=== PATIENT | male | born 1995 | race Caucasian/White ===

== ENCOUNTER 2020-08-26 11:52 | Outpatient (REF) | payer OTHER, SELFPAY ==
[2020-08-26 12:12] LABS: COVID-19 Test Negative (Negative)
== END 2020-08-26 11:53 | disposition home or self-care (01) ==
LOC: HO.EMPCOV 11:52
PROVIDERS: Visit Provider Internal Medicine
DX: Z20.828 Contact with and (suspected) exposure to other viral communicable diseases (principal)
CPT/HCPCS: 87635; C9803

== ENCOUNTER 2020-11-19 07:25 | Outpatient (REF) | payer OTHER, SELFPAY ==
[2020-11-19 09:06] LABS: HIV AB/AG Nonreactive (Nonreactive); HIV Num 1 0.07 S/CO (0.00-0.99); ~HepC Num1 0.09 S/CO (0.00-0.79); ~Hepatitis C Antibody Nonreactive (Nonreactive)
[2020-11-19 09:16] LABS: HBsAGNum1 0.22 S/CO (0.00-0.99); Hepatitis B Surface Antigen Negative (Negative)
[2020-11-19 09:35] LABS: Syphilis Screen Nonreactive (Nonreactive)
[2020-11-20 16:12] LABS: C. trachomatis RNA TMA NOT DETECTED (NOT DETECTED); N. gonorrhoeae RNA TMA NOT DETECTED (NOT DETECTED)
== END 2020-11-19 07:26 | disposition home or self-care (01) ==
LOC: HO.LAB 07:25
PROVIDERS: PCP Family Medicine; Visit Provider Family Medicine
DX: Z11.4 Encounter for screening for human immunodeficiency virus [HIV] (principal); Z11.3 Encounter for screening for infections with a predominantly sexual mode of transmission; Z01.84 Encounter for antibody response examination; Z20.2 Contact with and (suspected) exposure to infections with a predominantly sexual mode of transmission
CPT/HCPCS: 36415; 86780; 86803; 87340; 87389; 87491; 87591

== ENCOUNTER 2021-05-07 07:03 | Outpatient (REF) | payer OTHER, SELFPAY ==
[2021-05-07 08:21] LABS: HBsAGNum1 0.18 S/CO (0.00-0.99); HIV AB/AG Nonreactive (Nonreactive); HIV Num 1 0.05 S/CO (0.00-0.99); Hepatitis B Surface Antigen Negative (Negative); ~HepC Num1 0.13 S/CO (0.00-0.79); ~Hepatitis C Antibody Nonreactive (Nonreactive)
[2021-05-07 11:30] LABS: CT PCR NOT DETECTED (Not Detect.); NG PCR NOT DETECTED (Not Detect.)
[2021-05-09 08:27] LABS: Syphilis Screen Nonreactive (Nonreactive)
== END 2021-05-07 07:04 | disposition home or self-care (01) ==
LOC: HO.LAB 07:03
PROVIDERS: PCP Family Medicine; Visit Provider Family Medicine
DX: Z20.2 Contact with and (suspected) exposure to infections with a predominantly sexual mode of transmission (principal)
CPT/HCPCS: 86780; 86803; 87340; 87389; 87491; 87591

== ENCOUNTER 2021-06-08 07:07 | Outpatient (REF) | payer OTHER, SELFPAY ==
[2021-06-08 09:07] LABS: Anion Gap 12 (12-20); Blood Urea Nitrogen 10 mg/dL (9-16); Calcium 9.7 mg/dL (8.4-10.2); Carbon Dioxide 27 mmol/L (22-29); Chloride 105 mmol/L (96-108); Cholesterol 153 mg/dL; Estimated Glomerular Filt Rate > 60; Glucose Fasting 77 mg/dL (60-99); HDL Cholesterol 44 mg/dL; LDL Cholesterol Calculated 92 mg/dl; Potassium 4.2 mmol/L (3.3-5.1); Sodium 140 mmol/L (135-145); Triglycerides 88 mg/dL
[2021-06-15 14:31] LABS: TS Negative Control Passed; TS Panel A 1; TS Panel B 0; TS Positive Control Passed; TSpotTB Negative (SeeBelow)
== END 2021-06-08 07:08 | disposition home or self-care (01) ==
LOC: HO.LAB 07:07
PROVIDERS: PCP Family Medicine; Visit Provider Family Medicine
DX: R73.01 Impaired fasting glucose (principal); Z11.1 Encounter for screening for respiratory tuberculosis
CPT/HCPCS: 36415; 80048; 80061; 86481

== ENCOUNTER 2021-06-24 02:02 | Outpatient (REF) | payer OTHER, SELFPAY ==
[2021-06-24 02:30] LABS: COVID-19 Test Negative (Negative)
== END 2021-06-24 02:03 | disposition home or self-care (01) ==
LOC: HO.LAB 02:02
PROVIDERS: Visit Provider Internal Medicine
DX: Z20.822 Contact with and (suspected) exposure to COVID-19 (principal)
CPT/HCPCS: 36415; 87635

== ENCOUNTER 2021-09-15 01:52 | Outpatient (REF) | payer OTHER, SELFPAY ==
[2021-09-15 02:31] LABS: COVID-19 Test Negative (Negative)
== END 2021-09-15 01:53 | disposition home or self-care (01) ==
LOC: HO.LAB 01:52
PROVIDERS: PCP Family Medicine; Visit Provider Internal Medicine
DX: R09.89 Other specified symptoms and signs involving the circulatory and respiratory systems (principal); Z20.822 Contact with and (suspected) exposure to COVID-19
CPT/HCPCS: 36415; 87635

== ENCOUNTER 2021-09-23 07:30 | Outpatient (REF) | payer OTHER, SELFPAY ==
--- NOTE | ~2021-09-23 | XR_ITS ---
EXAMINATION: XR KNEE STANDING, BILATERAL XR KNEE, LEFT CLINICAL INFORMATION: Pain in left knee. COMPARISON: None TECHNIQUE: AP view of the bilateral knees standing. 2 views of the left knee. FINDINGS: No fracture or dislocation. Alignment is normal. Cartilage spaces in the knee are preserved. No joint effusion. Soft tissues are unremarkable. XR/XR knee standing BI IMPRESSION: Unremarkable left knee.
--- NOTE | ~2021-09-23 | XR_ITS ---
EXAMINATION: XR KNEE STANDING, BILATERAL XR KNEE, LEFT CLINICAL INFORMATION: Pain in left knee. COMPARISON: None TECHNIQUE: AP view of the bilateral knees standing. 2 views of the left knee. FINDINGS: No fracture or dislocation. Alignment is normal. Cartilage spaces in the knee are preserved. No joint effusion. Soft tissues are unremarkable. XR/XR knee LT 2V IMPRESSION: Unremarkable left knee.
== END 2021-09-23 07:31 | disposition home or self-care (01) ==
LOC: HO.HOSX 07:30
PROVIDERS: Visit Provider Physician Assistant
DX: M25.562 Pain in left knee (principal); M22.41 Chondromalacia patellae, right knee
CPT/HCPCS: 73560; 73565; 99202

== ENCOUNTER 2022-03-24 18:24 | Outpatient (REF) | payer OTHER, SELFPAY ==
[2022-03-24 18:54] LABS: COVID-19 Test Negative (Negative)
== END 2022-03-24 18:25 | disposition home or self-care (01) ==
LOC: HO.LAB 18:24
PROVIDERS: PCP Internal Medicine; Visit Provider Internal Medicine
DX: Z20.822 Contact with and (suspected) exposure to COVID-19 (principal)
CPT/HCPCS: 87635

== ENCOUNTER 2022-09-12 17:33 | Outpatient (REF) | payer SELFPAY ==
[2022-09-12 18:38] LABS: COVID-19 Test Negative (Negative); IDNOW Serial# 16C4AD1C
== END 2022-09-12 17:34 | disposition home or self-care (01) ==
LOC: HO.LAB 17:33
PROVIDERS: Visit Provider Internal Medicine
DX: Z20.822 Contact with and (suspected) exposure to COVID-19 (principal)
CPT/HCPCS: 87635

== ENCOUNTER → 2023-01-03 15:03 | Outpatient (BNVA) | payer SELFPAY | PROVIDERS: PCP Internal Medicine | DX: Z13.89 Encounter for screening for other disorder (principal) ==

== ENCOUNTER 2023-09-16 09:46 | Outpatient (AMB) | payer OTHER, SELFPAY ==
--- NOTE | 2023-09-16 09:49 | A.OFFVIS_ITS ---
Intake Vital Signs 09/16/23 09:58 Height 5 ft 9 in Weight 185 lb BMI 27.3 Intake Visit Reasons: OV-Left Knee Pain-follow up Intake Note: [place] a 27 year old male presents today for a follow up visit of his left knee. Patient reports he feels his knee is unstable, like if it will give out. He states that he frequently goes to the gym and with strengthening he has difficulty with lifting certain weights. Denies pain. Allergies No Known Allergies Allergy (Verified 09/16/23 10:03) Medication List - Last Reconciled 09/16/23 by Marisela Vargas PA-C No Known Home Meds HPI OV-Left Knee Pain-follow up HPI Details 27-year-old male who returns to the [facility] today for a follow-up of left knee pain. He states he has no pain but he does c/o instability in his knee and feels like giving out. He reports he frequently goes to gym and experiences difficulty with lifting certain weights during strength training. [facility] Social History Current occupational status: employed Current occupation: rt [employer] Review of Systems Const All systems reviewed & are unremarkable except as noted in HPI and below Physical Exam Vital Signs: BMI result Body Mass Index 27.3 Extrem Other: Left knee: Skin intact, no erythema or joint effusion. Lateral retropatellar tenderness present. Full ROM with crepitus. Negative Noemi?s. No ligamentous laxity. NVI. Results Reviewed Results Reviewed: Xrays were obtained in the office today and personally reviewed by me of the left knee are negative for acute or chronic abnormalities. Assessment & Plan Assessment & Plan (1) Internal derangement of right knee: Code(s): M23.91 - Unspecified internal derangement of right knee (2) Chondromalacia patellae of right knee: Code(s): M22.41 - Chondromalacia patellae, right knee Plan An MRI of left knee has been ordered to further evaluate the integrity of meniscus and surrounding structures. I did review with him some exercise modifications to help with feeling pain with certain exercises. He was also fit for a patellar stabilizing knee brace in the office today. He will see us back once the scan is complete. Orders: Orders XR knee standing BI Today M25.561 - Pain in right knee, M25.562 - Pain in left knee XR knee LT 2V Today M25.562 - Pain in left knee MR knee RT wo con Today M22.41 - Chondromalacia patellae, right knee, M23.91 - Unspecified internal derangement of right knee Patient Instructions: Scribed for Marisela Vargas PA-C, by John Aguirre medical transport specialist, on 09/16/2023 at 9:30 AM GAY. Marisela Connolly PA-C, have personally reviewed and agree with the information entered by the scribe. Coding Level of Care Code Est Pt Level 3 (46328) Diagnoses Internal derangement of right knee M23.91 Chondromalacia patellae of right knee M22.41
[2023-09-16 09:58] VITALS: BMI 27.3
== END 2023-09-16 10:21 | disposition home or self-care (01) ==
PROVIDERS: PCP Internal Medicine; Visit Provider Physician Assistant
DX: M23.91 Unspecified internal derangement of right knee (principal); M22.41 Chondromalacia patellae, right knee
CPT/HCPCS: 99213

== ENCOUNTER 2023-09-16 12:06 | Outpatient (REF) | payer OTHER, SELFPAY | END 2023-09-16 12:07 | disposition home or self-care (01) | LOC: HO.HOSX 12:06 | PROVIDERS: Visit Provider Physician Assistant | DX: M25.562 Pain in left knee (principal); M23.91 Unspecified internal derangement of right knee; M22.41 Chondromalacia patellae, right knee | CPT/HCPCS: 73560; 73565 ==

== ENCOUNTER 2023-10-10 11:06 | Outpatient (REF) | payer OTHER, SELFPAY ==
--- NOTE | ~2023-10-10 | MR_ITS ---
EXAMINATION: MR KNEE WITHOUT CONTRAST, LEFT CLINICAL INFORMATION: Left knee pain COMPARISON: Radiographs 09/16/2023 TECHNIQUE: MRI of the knee without contrast was performed using routine sequences on a high-field scanner. FINDINGS: MENISCI: Medial Meniscus: Intact Lateral Meniscus: Intact LIGAMENTS: Cruciate: Intact Collateral: Intact EXTENSOR MECHANISM: Intact. Patella silva. The TT-TG distance is 15 mm. ARTICULAR CARTILAGE/BONE: Patellofemoral Compartment: Cartilage thinning and surface irregularity with subchondral cysts at the inferior aspect of the lateral patellar facet. Focal cartilage signal heterogeneity and subchondral edema of the medial patellar facet. Medial Compartment: Normal Lateral Compartment: Normal JOINT FLUID AND BURSAE: Trace joint effusion. MR/MR knee LT wo con IMPRESSION: 1. No meniscal tear. 2. Mild patellofemoral compartment osteoarthritis with a trace joint effusion. Patella silva.
== END 2023-10-10 11:07 | disposition home or self-care (01) ==
LOC: HO.MRI 11:06
PROVIDERS: Visit Provider Physician Assistant
DX: M22.42 Chondromalacia patellae, left knee (principal); M23.92 Unspecified internal derangement of left knee
CPT/HCPCS: 73721

== ENCOUNTER 2024-12-08 06:06 | Emergency (ER) | payer OTHER, SELFPAY ==
[2024-12-08 06:07] VITALS: BP 140/81; PULSE 98; RESP 18; TEMP 37.1; O2SAT 100; BMI 26.6
[2024-12-08 06:59] LABS: Appearance Urine Clear; Color Urine Yellow; Glucose Urine UA Negative (Negative); Leukocyte Esterase Urine Negative (Negative); Nitrite Urine Negative (Negative); PH 5.5 (5.0-9.0); Specific Gravity - Urine 1.025 (1.005-1.025); Urine Blood Negative (Negative); Urine Ketones Negative (Negative); Urine Protein Negative (Neg-Trace)
[2024-12-08 07:04] LABS: Bacteria Urine None Seen (None Seen); Hyaline Casts Urine 0-2 /LPF (0-2); RBC Urine 0-2 /HPF (0-2); Squamous Epithelial Cell Urine 0-2 /HPF (0-2); WBC Urine 0-5 /HPF (0-5)
[2024-12-08 07:43] LABS: MANUAL DIFF FLAG NO
[2024-12-08 07:46] LABS: Basophils Percent Auto 0.5 % (0-2); Eosinophils Absolute Auto 0.1 X10*3/uL (0.0-0.4); Hematocrit 41.8 % (42.0-52.0); Hemoglobin 14.5 g/dl (14.0-18.0); Imm Gran Abs Auto 0.09 X10*3/uL (0.00-0.03); Imm Gran Pct Auto 1.1 % (0.0-0.4); Lymphocytes Absolute Auto 1.4 X10*3/uL (1.2-4.9); Lymphocytes Percent Auto 16.9 % (20-40); Mean Corpuscular HGB Conc 34.7 g/dl (31.0-36.0); Mean Corpuscular Hemoglobin 30.2 pg (27.0-33.0); Mean Corpuscular Volume 87.1 fL (80.0-98.0); Monocytes Absolute Auto 0.6 X10*3/uL (0.1-1.2); Monocytes Percent Auto 7.1 % (2-11); Neutrophils Percent Auto 73.4 % (45-73); Platelet Count 229 X10*3/uL (160-400); Red Cell Distribution Width 12.8 % (11.0-16.0); White Blood Count 8.2 X10*3/uL (4.8-10.8)
[2024-12-08 08:01] LABS: Anion Gap 12 (12-20); Blood Urea Nitrogen 13 mg/dL (9-16); Carbon Dioxide 27 mmol/L (22-29); Chloride 106 mmol/L (96-108); Creatinine Clr Calc Pharmacy 118.9; Estimated Glomerular Filt Rate > 60; Glucose Random 100 mg/dL (60-115); Potassium 4.5 mmol/L (3.3-5.1); Sodium 140 mmol/L (135-145)
--- NOTE | 2024-12-08 08:06 | ED_ITS ---
HPI - Male Genitourinary General Chief complaint: Urogenital-Male Stated complaint: Bladder infection? Time Seen by Provider: 12/08/24 06:55 Source: patient Mode of arrival: ambulatory Limitations: no limitations History of Present Illness ED Provider: Reginald Álvarez PA-C HPI Narrative: 29 yo male presents to the ER for evaluation of urinary urgency, frequency and dysuria that started this morning. He reports he had one episode of slight burning with urination this morning and some mild swelling of the penis prompting him to come get evaluated today. He reports he is able to fully empty his bladder but he feels like he still has to urinate. He denies any penile drainage. no hematuria, flank pain, abdominal pain, N/V/D. no genital lesions. no concern for STI, last sexual encounter was 1 month ago. no history of similar issues in the past. he reports the swelling of the penis is now resolved. MD Complaint: dysuria Onset (ago): day(s) (1) Duration: intermittent Location: penis and abdomen Severity: mild Quality: burning Relieving factors: none Exacerbating factors: urination Associated symptoms: Reports dysuria Related Data Sexually active: Yes Home Medications ?Medication ?Instructions ?Recorded ?Confirmed No Known Home Meds 09/23/21 09/16/23 Allergies Allergy/AdvReac Type Severity Reaction Status Date / Time No Known Allergies Allergy Verified 12/08/24 06:08 Review of Systems 2 Review of Systems: Yes all other systems are reviewed and are negative [facility] Social History Social History Advance Directives: No Advance Directives Information Provided: Yes Do you have a plan to hurt others: No Plan Current occupational status: employed Current occupation: rt handed/[employer] [facility] [place] Physical Exam 2 Vital Signs: Vital Signs: Last Vital Signs Temp 98.7 F 12/08/24 06:07 Pulse 98 12/08/24 06:07 Resp 18 12/08/24 06:07 BP 140/81 H 12/08/24 06:07 Pulse Ox 100 12/08/24 06:07 O2 Del Method Room Air 12/08/24 06:07 BMI result Body Mass Index 26.6 Appearance: Alert. Oriented X3. No acute distress. Head: normocephalic, atraumatic. Eyes: Pupils equal, round and reactive to light. ENT: Pharynx normal. No tonsillar swelling or exudate. Neck: Normal inspection. Neck supple. CVS: Normal heart rate and rhythm. Pulses normal. Respiratory: No respiratory distress. Breath sounds normal. Abdomen: Soft and nontender. +BS x4 Skin: Skin warm and dry. Normal skin color. Normal skin turgor. No rashes. Extremities: No lower extremity edema. No joint swelling. Neuro/psych: Oriented X 3. grossly normal, nonfocal. Normal speech and cognition. Medical Decision Making Medical Decision Making [facility] Narrative: 29 yo male presents to the ER for evaluation of acute onset of urinary urgency, frequency since today and dysuria x1. symptoms improved already UA is negative labs normal CT/NG negative for now watchful waiting is a reasonable course with increased hydration. advised to monitor symptoms and f/u with urology if symptoms persist. stable for d/c home Differential Diagnosis Differential Diagnoses: The differential diagnosis associated with the presentation includes UTI, STI, urinary retention, urinary obstruction, interstitial cystitis, proctitis Lab Data [facility] Lab Attestation statement: I reviewed the patient's lab results. no leukocytosis, renal function is normal 12/08/24 07:38 12/08/24 07:38 Labs: Lab Results 12/08/24 12/08/24 Range/Units 06:52 07:38 WBC 8.2 (4.8-10.8) X10*3/uL RBC 4.80 (4.60-5.80) X10*6/uL Hgb 14.5 (14.0-18.0) g/dl Hct 41.8 L (42.0-52.0) % MCV 87.1 (80.0-98.0) fL MCH 30.2 (27.0-33.0) pg MCHC 34.7 (31.0-36.0) g/dl RDW 12.8 (11.0-16.0) % Plt Count 229 (160-400) X10*3/uL MPV 9.0 L (9.4-12.4) fL Immature Gran % (Auto) 1.1 H (0.0-0.4) % Neut % (Auto) 73.4 H (45-73) % Lymph % (Auto) 16.9 L (20-40) % Nye % (Auto) 7.1 (2-11) % Eos % (Auto) 1.0 (0-4) % Baso % (Auto) 0.5 (0-2) % Lymph # (Auto) 1.4 (1.2-4.9) X10*3/uL Nye # (Auto) 0.6 (0.1-1.2) X10*3/uL Eos # (Auto) 0.1 (0.0-0.4) X10*3/uL Baso # (Auto) 0.0 (0.0-0.2) X10*3/uL Abs Immat Gran (auto) 0.09 H (0.00-0.03) X10*3/uL Absolute Neuts (auto) 6.0 (2.0-8.3) x10*3/uL Absolute Nucleated RBC 0.000 (0.0-0.012) X10*3/uL Nucleated RBC % (auto) 0.0 (0.0-0.2) /100WBC Sodium 140 (135-145) mmol/L Potassium 4.5 (3.3-5.1) mmol/L Chloride 106 (96-108) mmol/L Carbon Dioxide 27 (22-29) mmol/L Anion Gap 12 (12-20) BUN 13 (9-16) mg/dL Creatinine 0.90 (0.5-1.4) mg/dL Estim Creat Clear Calc 118.9 Estimated GFR > 60 Random Glucose 100 (60-115) mg/dL Calcium 9.0 D (8.4-10.2) mg/dL Urine Color Yellow Urine Appearance Clear Urine pH 5.5 (5.0-9.0) Ur Specific [place] 1.025 (1.005-1.025) Urine Protein Negative (Neg-Trace) mg/dL Urine Glucose (UA) Negative (Negative) mg/dL Urine Ketones Negative (Negative) mg/dL Urine Blood Negative (Negative) Urine Nitrite Negative (Negative) Ur Leukocyte Esterase Negative (Negative) Urine RBC 0-2 (0-2) /HPF Urine WBC 0-5 (0-5) /HPF Ur Squamous Epith Cells 0-2 (0-2) /HPF Urine Bacteria None Seen (None Seen) Hyaline Casts 0-2 (0-2) /LPF Chlam trachomat DNA PCR NOT DETECTED (Not Detect.) N.gonorrhoeae DNA (PCR) NOT DETECTED (Not Detect.) External Record Review External record reviewed: Prior outpatient labs Prescription Management I considered prescription management with: Pain Medication and Antibiotic Critical Care Time Critical Care Time Critical Care Time: No Discharge Plan Discharge Clinical Impression: Urinary urgency Patient Disposition: Home, Self-Care Instructions: Urinary Urgency and Frequency (DC) Additional Instructions: Your labs test today came back normal. There is no evidence of urinary tract infection, no blood in your urine, no evidence of STI. Your renal function was normal. Recommend drinking plenty of water to flush her system in your bladder. If you have ongoing symptoms, recommend following up with Urology for further evaluation and treatment. Call for an appointment. Name and number below. If you develop new or worsening symptoms call 911 or come back to the ER for further evaluation. Prescriptions: No Action No Known Home Meds Referrals: [facility] [Provider Group] JENNIFER NARAYAN [Primary Care Provider] - Interventions: ED Discharge Assessment Last Done: 12/08/24 09:41 Print Language: Citizen Of [place]
--- NOTE | 2024-12-08 09:08 | PC.NURSE ---
awaiting results of ct/ng. patient reports improvement in swelling.
[2024-12-08 09:22] LABS: CT PCR NOT DETECTED (Not Detect.); NG PCR NOT DETECTED (Not Detect.)
[2024-12-08 09:41] VITALS: BP 140/81; PULSE 98; RESP 18; TEMP 37.1; O2SAT 100
== END 2024-12-08 09:42 | disposition home or self-care (01) ==
PROVIDERS: Physician Assistant; Emergency Provider Emergency Medicine; PCP Internal Medicine
DX: R39.15 Urgency of urination (principal)
CPT/HCPCS: 36415; 80048; 81001; 85025; 87491; 87591; 99282; 99283

== ENCOUNTER 2025-01-18 14:39 | Outpatient (REF) | payer OTHER, SELFPAY ==
--- NOTE | ~2025-01-18 | XR_ITS ---
EXAMINATION: XR CHEST CLINICAL INFORMATION: PAIN COMPARISON: None available. TECHNIQUE: 2 views of the chest were obtained. FINDINGS: The cardiac, hilar, and mediastinal contours are normal. The lungs are clear bilaterally. There is no pneumothorax or pleural effusion. There is no focal osseous or soft tissue abnormality. XR/XR chest 2V IMPRESSION: Normal chest. Electronically signed by: Gagandeep Florse MD 01/22/2025 10:36 AM EDT
[2025-01-18 14:53] LABS: MANUAL DIFF FLAG NO
[2025-01-18 15:04] LABS: Basophils Percent Auto 0.5 % (0-2); Eosinophils Absolute Auto 0.1 X10*3/uL (0.0-0.4); Eosinophils Percent Auto 1.1 % (0-4); Hematocrit 45.9 % (42.0-52.0); Hemoglobin 15.4 g/dl (14.0-18.0); Imm Gran Abs Auto 0.06 X10*3/uL (0.00-0.03); Imm Gran Pct Auto 0.8 % (0.0-0.4); Lymphocytes Absolute Auto 2.6 X10*3/uL (1.2-4.9); Lymphocytes Percent Auto 34.5 % (20-40); Mean Corpuscular HGB Conc 33.6 g/dl (31.0-36.0); Mean Corpuscular Hemoglobin 29.8 pg (27.0-33.0); Mean Platelet Volume 8.9 fL (9.4-12.4); Monocytes Absolute Auto 0.6 X10*3/uL (0.1-1.2); Monocytes Percent Auto 7.6 % (2-11); Neutrophils Absolute Auto 4.1 x10*3/uL (2.0-8.3); Neutrophils Percent Auto 55.5 % (45-73); Platelet Count 250 X10*3/uL (160-400); Red Blood Count 5.16 X10*6/uL (4.60-5.80); White Blood Count 7.5 X10*3/uL (4.8-10.8)
== END 2025-01-18 14:40 | disposition home or self-care (01) ==
LOC: HO.LAB 14:39
PROVIDERS: PCP Internal Medicine; Visit Provider Internal Medicine
DX: R07.89 Other chest pain (principal)
CPT/HCPCS: 36415; 71046; 85025

== ENCOUNTER → 2025-01-18 14:58 | Outpatient (BNV) | payer OTHER, SELFPAY | PROVIDERS: PCP Internal Medicine; Visit Provider Radiology Diagnostic Radiology | DX: R07.9 Chest pain, unspecified (principal) | CPT/HCPCS: 71046 ==